=== PATIENT | female | born 1990 | race Two or more races ===

== ENCOUNTER 2023-01-07 19:53 | Emergency (ER) | payer OTHER ==
[~2023-01-07] VITALS: Ht 167.6 cm; Wt 64.4 kg
[2023-01-07] MEDS ORDERED: ACET-2605 PO (21:42)
[2023-01-07 21:54] VITALS: BP 115/70; TEMP 98.1; O2SAT 100
== END 2023-01-07 21:55 | disposition home or self-care (01) ==
LOC: ER 19:55
DX: J06.9 Acute upper respiratory infection, unspecified (principal); Z79.899 Other long term (current) drug therapy; Z60.2 Problems related to living alone